=== PATIENT | female | born 1995 | race American Indian/Alaskan Native ===

== ENCOUNTER 2021-04-29 12:45 | Emergency (ER) | payer SELFPAY ==
[2021-04-29] MEDS ORDERED: ACETAMINOPHEN 500 MG TAB PO ONE (13:41)
--- NOTE | 2021-04-29 14:11 | Emergency Department Report ---
ED Female HPI - General Chief complaint: Urogenital-Female Stated complaint: AB PAIN BLEEDING X5 Time Seen by Provider: 04/29/21 13:36 Source: patient Mode of arrival: Ambulatory Limitations: No Limitations - History of Present Illness Initial comments: 6-year-old female with no significant past history presents to the ER today with complaints of abnormal vaginal bleeding. Patient states that she has been having abnormal bleeding for the past 2 days. She states that it started light but has since got heavier than a typical period. She has changed about 6 pads since the bleeding started. She states that she has been having lower abdominal pain all last week which has been constant and stabbing in nature with associated nausea and mild dysuria. She states that she had a normal menstrual cycle the beginning of April. She states that she did take a home test x1 on Saturday and it was positive. She reports no abnormal vag bleeding. She is not currently on any control. MD Complaint: vaginal bleeding -: days(s) (2) - Related Data Previous Rx's Medication Instructions Recorded Last Taken Type Ibuprofen [Motrin] 800 mg PO Q8HR PRN #20 tablet 04/29/21 Unknown Rx Allergies Allergy/AdvReac Type Severity Reaction Status Date / Time No Known Allergies Allergy Unverified 04/29/21 13:20 ED Review of Systems ROS: Stated complaint: AB PAIN BLEEDING X5 Other details as noted in HPI Comment: All other systems reviewed and negative Constitutional: denies: chills, fever Eyes: denies: eye pain, eye discharge, vision change ENT: denies: ear pain, throat pain Respiratory: denies: cough, shortness of breath, SOB with exertion, SOB at rest, stridor, wheezing Cardiovascular: denies: chest pain, palpitations Gastrointestinal: nausea. denies: abdominal pain, vomiting, diarrhea, constipation, hematemesis, melena, hematochezia Genitourinary: dysuria, other (abnormal vaginal bleeding). denies: urgency, frequency, hematuria, discharge Musculoskeletal: denies: back pain, joint swelling, arthralgia Skin: denies: rash, lesions, change in color, change in hair/nails, pruritus Neurological: denies: headache, weakness, numbness, paresthesias, confusion, abnormal gait, vertigo Psychiatric: denies: anxiety, depression, auditory hallucinations, visual hallucinations, homicidal thoughts, suicidal thoughts Hematological/Lymphatic: denies: easy bleeding, easy bruising, swollen glands ED Past Medical Hx - Past Medical History Previous Medical History?: Yes Additional medical history: UTI - Surgical History Past Surgical History?: No - Social History Smoking Status: Never Smoker Substance Use Type: None - Medications Home Medications: Home Medications Medication Instructions Recorded Confirmed Last Taken Type Ibuprofen [Motrin] 800 mg PO Q8HR PRN #20 tablet 04/29/21 Unknown Rx ED Physical Exam - General Limitations: No Limitations General appearance: alert, in no apparent distress - Head Head exam: Present: atraumatic, normocephalic, normal inspection - Eye Eye exam: Present: normal appearance, PERRL, EOMI Pupils: Present: normal accommodation - Neck Neck exam: Present: normal inspection, full ROM - Respiratory Respiratory exam: Present: normal lung sounds bilaterally. Absent: respiratory distress, wheezes, rales, rhonchi - Cardiovascular Cardiovascular Exam: Present: regular rate, normal rhythm, normal heart sounds - GI/Abdominal GI/Abdominal exam: Present: soft. Absent: distended, tenderness, guarding, rebound - Neurological Exam Neurological exam: Present: alert, oriented X3, CN II-XII intact, normal gait - Psychiatric Psychiatric exam: Present: normal affect, normal mood - Skin Skin exam: Present: intact ED Course Vital Signs 04/29/21 04/29/21 13:20 16:44 Temperature 98.7 F 98.3 F Pulse Rate 55 L 68 Respiratory 20 18 Rate Blood Pressure 109/53 Blood Pressure 118/55 [Left] O2 Sat by Pulse 100 100 Oximetry ED Medical Decision Making - Lab Data Result diagrams: 04/29/21 13:49 04/29/21 13:49 - Medical Decision Making All lab reviewed and unremarkable including negative quant hcg Patient currently sitting up in chair, comfortably on her phone. She does not appear to be in any acute distress. She is not toxic or ill-appearing. She has a normal gait. Her vital signs are stable. Patient had a soft nontender abdomen on exam. Suspect that her pain is likely related to her abnormal vaginal bleeding. At this time I do not suspect appendicitis, tubo-ovarian abscess, ovarian torsion, kidney stone, bowel perforation, sepsis or any other emergent conditions warranting any additional testing, admission or specialist consult at this time. Discussed lab results with patient. Discussed suspected diagnosis with patient. She will be given referral to [facility] for further evaluation of her abnormal bleeding, but I did discuss worsening signs and symptoms with her and to return to the ER immediately if she develops those signs and symptoms. Patient expressed understanding of all instructions and agree with plan. Patient stable at time of discharge. Critical care attestation.: If time is entered above; I have spent that time in minutes in the direct care of this critically ill patient, excluding procedure time. ED Disposition Clinical Impression: Abnormal vaginal bleeding Disposition: HOME / SELF CARE / HOMELESS Is pt being admited?: No Does the pt Need Aspirin: No Condition: Stable Instructions: Abnormal Uterine Bleeding Additional Instructions: Take the Motrin as prescribed to help with pain. I do recommend following up with the [facility] listed on your discharge instructions for further evaluation especially if your pain continues. Return to the ER if your symptoms changes or worsens in any way. Prescriptions: Ibuprofen [Motrin] 800 mg PO Q8HR PRN #20 tablet PRN Reason: Pain Referrals: [facility] [Provider Group] - 3-5 Days Forms: Work/School Release Form(ED) Time of Disposition: 16:32
[2021-04-29 14:18] LABS: Basophils % (Auto) 0.4 % (0.0-1.8); Eosinophils % (Auto) 0.6 % (0.0-4.3); Hematocrit 33.6 % (30.3-42.9); Hemoglobin 11.6 gm/dl (10.1-14.3); Lymphocytes # (Auto) 1.8 K/mm3 (1.2-5.4); Lymphocytes % (Auto) 36.4 % (13.4-35.0); Mean Corpuscular HGB Conc 35 % (30-34); Mean Corpuscular Volume 96 fl (79-97); Monocytes # (Auto) 0.3 K/mm3 (0.0-0.8); Monocytes % (Auto) 6.3 % (0.0-7.3); Platelet Count 220 K/mm3 (140-440); Red Cell Distribution Width 12.6 % (13.2-15.2)
[2021-04-29 14:27] LABS: Alanine Aminotransferase 9 units/L (7-56); Albumin 4.1 g/dL (3.9-5); Blood Urea Nitrogen 9 mg/dL (7-17); Calcium 9.3 mg/dL (8.4-10.2); Hemolysis Index 6
[2021-04-29 14:30] LABS: BUN/Creatinine Ratio 15
[2021-04-29 16:23] LABS: Bacteria,Urine 4+ /HPF (Negative); Bilirubin,Urine NEG (Negative); Blood,Urine LG (Negative); Color,Urine Yellow (Yellow); Mucus,Urine 3+ /HPF; Urobilinogen,Urine < 2.0 mg/dL (<2.0)
[2021-04-29 16:45] VITALS: BP 118/55
== END 2021-04-29 16:42 | disposition home or self-care (01) ==
LOC: ED 12:45
DX: N93.9 Abnormal uterine and vaginal bleeding, unspecified (principal); Z79.899 Other long term (current) drug therapy
CPT/HCPCS: 36415; 80053; 81001; 84702; 85025; 86900; 86901; 99283